=== PATIENT | male | born 1950 | race Asian ===

== ENCOUNTER 2021-02-11 05:47 | Day surgery (SDC) | payer MEDICARE, BC ==
[2021-02-04 15:25] LABS: BASOPHILS # (AUTO) 0.1 X10'3 (0-0.2); BASOPHILS % (AUTO) 0.9 % (0-1); EOSINOPHILS # (AUTO) 0.3 X10'3 (0-0.9); EOSINOPHILS % (AUTO) 2.9 % (0-6); LYMPHOCYTES # (AUTO) 2.4 X10'3 (1.1-4.8); LYMPHOCYTES % (AUTO) 27.1 % (21-51); MEAN CORPUSCULAR HEMOGLOBIN 33.2 PG (27.0-31.0); MEAN CORPUSCULAR HGB CONC 33.9 g/dL (33.0-36.5); MEAN CORPUSCULAR VOLUME 97.9 FL (78-98); MEAN PLATELET VOLUME 8.2 FL (7.4-10.4); MONOCYTES # (AUTO) 0.7 X10'3 (0-0.9); NEUTROPHILS # (AUTO) 5.4 X10'3 (1.8-7.7); NEUTROPHILS % (AUTO) 61.1 % (42-75); PRE OP HEMATOCRIT 42.9 % (42.0-52.0); PRE OP HEMOGLOBIN 14.5 g/dL (14.0-17.9); PRE OP PLATELET COUNT 248 X10'3 (140-440); RED BLOOD COUNT 4.38 X10'6 (4.70-6.10); RED CELL DISTRIBUTION WIDTH 13.5 % (11.5-14.5)
[2021-02-04 15:43] LABS: ALBUMIN/GLOBULIN RATIO 1.1 (1.1-1.5); ALKALINE PHOSPHATASE 46 IU/L (46-116); BLOOD UREA NITROGEN 14 MG/DL (7-18); BUN/CREATININE RATIO 14.3 (5.4-32.0); CALCIUM 8.9 MG/DL (8.5-10.1); CHLORIDE 104 MMOL/L (99-107); CREATININE 0.98 MG/DL (0.60-1.10); PRE OP ALT 33 U/L (30-65); PRE OP ANION GAP 13 (8-16); PRE OP AST 21 U/L (10-37); PRE OP BILIRUB, TOTAL 0.3 MG/DL (0.0-1.0); PRE OP GLUCOSE 94 MG/DL (70-104); PRE OP SODIUM 140 MMOL/L (135-145); TOTAL CARBON DIOXIDE 22.9 MMOL/L (24-32); TOTAL PROTEIN 7.7 G/DL (6.4-8.2); eGFR 76 ML/MIN
[2021-02-11] VITALS (9 sets, daily range): BP systolic 116–143; BP diastolic 69–92
[~2021-02-11] VITALS: Ht 160 cm; Wt 101.7 kg
[~2021-02-11 05:47] MED LIST: IBUP-1984 PO; LEVO75TA PO; LOSA1TAB36 PO; METF-900 PO; PRAV40TA3 PO; famotidine 20mg tablet PO ONE; ringers solution, lacted 1,000 ML IV SCH
[2021-02-11] MEDS ORDERED: BUPIVAcaine/PF 2.5mg/ml (0.25%) 10ml vial ONE (06:42)
[2021-02-11] MEDS ORDERED: fentaNYL/PF 50MCG/1 ML 2ML syringe ONE (07:27)
[2021-02-11] MEDS ORDERED: midazolam 1 mg/ML 2ml injection ONE (07:28)
[2021-02-11] MEDS ORDERED: LIDOcaine 0.5% (5mg/ml) 50ml vial ONE (08:01)
[2021-02-11] MEDS ORDERED: propofol inj 20 ML IV ONE (08:02)
[2021-02-11] MEDS ORDERED: ceFAZolin 1000mg inj ONE ×2 (08:02)
[2021-02-11] MEDS ORDERED: acetaminophen 1,000mg/100ml IV 100 ML IV PRN (08:10)
[2021-02-11] MEDS ORDERED: meperidine/PF 25mg/ml syringe IV PRN ×3 (08:10)
[2021-02-11] MEDS ORDERED: hydrALAZINE 20mg/ml inj. IV PRN (08:10)
[2021-02-11] MEDS ORDERED: morphine 4 MG/ML inj SYRINge IV PRN (08:10)
[2021-02-11] MEDS ORDERED: labetalol 20mg/4ml (5mg/ml) syringe IV PRN (08:10)
[2021-02-11] MEDS ORDERED: morphine 2 MG/ML inj. syringe IV PRN (08:10)
[2021-02-11] MEDS ORDERED: ondansetron/PF 4mg/2ml inj IV PRN (08:10)
[2021-02-11] MEDS ORDERED: proCHLORperazine 10 MG/2 ml inj IV PRN (08:10)
[2021-02-11] MEDS ORDERED: ringers solution, lacted 1,000 ML IV SCH (08:10)
--- NOTE | 2021-02-11 08:34 | NUR ---
Received from OR via , accompanied by Anesthesiologist DR LINDER and report given by Anesthesiolgist. PT PRESENTS WITH 20G LEFT HAND, RIGHT HAND DRESSING DRY AND INTACT. VSS. BS 119 Addendum: 02/11/21 at 0842 by Maisha Mcguire RN, RN Amended: Links added.
--- NOTE | 2021-02-11 09:24 | NUR ---
PATIENT A&OX4, DENIES PAIN, V/S STABLE, I HAVE REVIEWED D/C ORDERS WITH PATIENT AND THEY HAVE VERBALIZED UNDERSTANDING. PATIENT D/C HOME WITH ALL BELONGINGS AND FRIEND GAVE TRANSPORT. Addendum: 02/11/21 at 8161 by Maisha Mcguire RN, RN Amended: Links added.
== END 2021-02-11 09:24 | disposition home or self-care (01) ==
LOC: PAS 05:47
PROVIDERS: ATTEND Orthopaedic Surgery Hand Surgery
DX: G56.01 Carpal tunnel syndrome, right upper limb (principal); I10 Essential (primary) hypertension; E11.9 Type 2 diabetes mellitus without complications; F32.9 Major depressive disorder, single episode, unspecified; Z72.89 Other problems related to lifestyle; Z79.899 Other long term (current) drug therapy; Z98.890 Other specified postprocedural states; Z87.891 Personal history of nicotine dependence
CPT/HCPCS: 29848; 36415; 80053; 82948; 85025; 93005; J0690; J2001; J2250; J2704; J3010; J3490; U0003; U0005; Z7506; Z7512; A4215; J7120